=== PATIENT | female | born 1990 | race Caucasian/White ===

== ENCOUNTER 2020-05-26 10:03 | Inpatient (IN) ==
[2020-05-26] MEDS ORDERED: OXYTOCIN 30 UNITS/500 ML BAG IV PRN ×3 (11:01→22:31)
--- NOTE | 2020-05-26 11:11 | History & Physical Report ---
Date of Service May 26, 2020 Assessment & Plan (1) : 29 y/o G1 at 40 wga presenting with PROM VSS Fetus cat 1 Labor - discussed expectant mgt for few hrs vs augmentation, risks vs benefits of both. Pt would like to begin augmentation, will start pit GBS neg Epidural PRN History of Present Illness Chief Complaint: LOF Primary Care Provider: NO PCP 29 y/o G1 at 40 wga w/ TAD 05/26/20 by LMP 08/20/19 c/w 1st tri US presents w/ LOF since ~730 this morning. Unsure if ctx assoc, some blood tinged mucous but no overt bleeding. +FM. PNI: None Past [employer] hx: G1 Menarche 12, cycles regular Last pap 2017 wnl, no hx abnormals No hx STIs Allergies Allergy/AdvReac Type Severity Reaction Status Date / Time No Known Allergies Allergy Verified 05/23/20 16:14 Home Medications Medication Instructions Recorded Confirmed Type prenat.vits,charity,lqu-huep-bexsy 1 tab PO DAILY 10/18/19 05/26/20 History ferrous fumarate 325 mg (106 mg 325 mg PO DAILY 11/22/19 05/26/20 History iron) tablet Patient History Medical History Acquired deviated nasal septum Chronic sinusitis History of chicken pox Hypertrophy of nasal turbinates Surgical History No pertinent past surgical history S/P wisdom tooth extraction Family History Grandfather (Maternal) Colorectal cancer Grandfather (Paternal) Myocardial infarction Diabetes Grandmother (Paternal) Diabetes Social History (Updated 05/26/20 @ 11:06 by Kenia Sheridan MD) Smoking Status: Never smoker Second Hand Exposure: No; Hx Alcohol Use: Yes Alcohol Intake Frequency Comment: Occassional - not in Hx Substance Use: No Preferred Language: Luxembourgish Communication Ability: Effective Cardio Tech Required: No Beliefs That Will Affect Care: None marital status: marital status details: Yao Hookerdashawn (28) [phone] Current Living Situation: Spouse Current Living Situation Comment: lives with spouse, cats-spouse changing litter current occupational status: employed 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 Other Information That Helps Us Care for You: No Feels Safe at Home: Yes Safety Concerns: Feels Safe At This Time Assistive Devices: None Physical Exam Constitutional: WD/WN, vitals as above no acute distress Respiratory: normal respiratory effort; no respiratory distress and no labored breathing Genitourinary: OB Exam Abdomen: + vertex (confirmed by BSUS) and + estimated weight (7-8lbs) Manual OB Exam: + cervical dilation 2 cm, + cervical effacement 70%, + station high and + amniotic fluid (+pooling, nitrazine, ferning) OB Exam Monitor Tracing: + external FHT monitor used, + external uterine monitor used (rare and irreg ctx) and + category I (135/mod/+accel/-d ecel) Results & Data ([facility]) Vital Signs (Past 12 Hours) Vital Signs Pulse BP 05/26/20 10:20 116 H 121/87 Laboratory Results OB Labs: Blood Type B Positive 10/25/19 Antibody Screen NEGATIVE 10/25/19 Hemoglobin 11.5 g/dL (12.0-16.0) L 10/25/19 Hematocrit 34.6 % (37-47) L 10/25/19 Mean Corpuscular Volume 85.6 fL (80-100) 10/25/19 Platelet Count 288 K/uL (130-400) 10/25/19 Rubella IgG Antibody Immune (Immune) 10/25/19 Rapid Plasma Reagin Nonreactive (Nonreactive) 10/25/19 Hepatitis B Surface Antigen Neg (Neg) 10/25/19 HIV (1&2) Ab and P24 Ag, 4th Gener Neg (Neg) 10/25/19 OB Optional Labs: Chlamydia trachomatis RNA NOT DETECTED (NOT DETECTED) 10/25/19 Neisseria gonorrhoeae RNA NOT DETECTED (NOT DETECTED) 10/25/1912/26: 69/89/86 03/08: 74/157/140 low risk cfDNA low risk cf/sma GBS neg COVID neg 05/14 posterior plac Code Status & VTE Plan VTE Prophylaxis Plan VTE Prophylaxis will be ordered: Yes Coding Level of Care Code None Diagnoses Z34.90
[2020-05-26] MEDS: LACTATED RINGER'S 1,000 ML IV PRN ×2 (11:35→15:45)
[2020-05-26 12:12] LABS: Hematocrit (blood only) 36.6 % (37-47); Mean Corpuscular Hgb Conc 32.8 g/dL (32-36); Mean Corpuscular Volume 85.5 fL (80-100); Mean Platelet Volume 12.4 fL (7.4-10.4); Platelet Count 241 K/uL (130-400); RDW Coefficient of Variation 13.1 % (11.5-14.5); RDW Standard Deviation 40.2 fL (36.4-46.3); Red Blood Count 4.28 M/uL (4.2-5.4); White Blood Count 16.29 K/uL (4.8-10.8)
[2020-05-26] MEDS ORDERED: ePHEDrine sulfate 50 MG/ML AMP ONE (14:32)
[2020-05-26] MEDS ORDERED: SODIUM CHLORIDE 0.9% INJ 10 ML VIAL ONE (14:33)
[2020-05-26] MEDS ORDERED: fentaNYL citrate 100 MCG/2 ML VIAL ONE (14:33)
[2020-05-26] MEDS ORDERED: BUPIVACAINE 0.25% 30 ML VIAL ONE (14:33)
[2020-05-26] MEDS ORDERED: fentaNYL 2MCG/ML ROPIVACAINE 1.25MG/ML 100 ML BAG EPI ONE (14:33)
--- NOTE | 2020-05-26 14:35 | Labor Progress Brief Note ---
Date of Service May 26, 2020 Subjective Much more uncomfortable w/ ctx, requesting epidural Assessment & Plan (1) : 29 y/o G1 at 40 wga presenting with PROM VSS Fetus cat 1 Labor - pit at 8, continue augmentation GBS neg Epidural PRN - desires epidural Admission and Anticipated Discharge Date Admission Date: May 26, 2020 Physical Exam Constitutional: WD/WN, vitals as above no acute distress Respiratory: normal respiratory effort; no respiratory distress and no labored breathing Genitourinary: Manual OB Exam: + cervical dilation 3 cm, + cervical effacement 70% and + station high OB Exam Monitor Tracing: + external FHT monitor used, + external uterine monitor used (q2-5min) and + category I (125/mod/+accel/- decel) Results & Data ([facility]) Vital Signs (Past 12 Hours) Vital Signs Temp Pulse Resp BP 05/26/20 13:45 90 120/78 05/26/20 13:30 98.4 F 05/26/20 12:45 89 110/71 05/26/20 11:46 101 H 103/66 05/26/20 10:54 116 H 18 121/87 05/26/20 10:20 116 H 121/87 Coding Level of Care Code None Diagnoses Z34.90
--- NOTE | 2020-05-26 15:02 | Anesthesiology Consultation ---
Date of Service May 26, 2020 Assessment & Plan (1) Encounter for pre-operative examination: Chart Review Chart Review: Acceptable Risk for Surgery History Height/Weight Height: 5 ft 4 in Weight: 92.079 kg Allergies Allergy/AdvReac Type Severity Reaction Status Date / Time No Known Allergies Allergy Verified 05/23/20 16:14 Medications Home Medications Medication Instructions Recorded Confirmed Last Taken prenat.vits,charity,hli-giur-cjked 1 tab PO DAILY 10/18/19 05/26/20 05/26/20 09:00 ferrous fumarate 325 mg (106 mg 325 mg PO DAILY 11/22/19 05/26/20 05/25/20 18:00 iron) tablet Active Medications Generic Name Dose Route Start Last Admin Trade Name Freq PRN Reason Stop Dose Admin Oxytocin 30 units in 500 mls @ 8 mls/hr 05/26/20 11:01 05/26/20 14:15 Pitocin IV 05/28/20 11:00 0.48 units/hr .Q24H PRN 8 mls/hr Labor Induction/Augmentation Titration Protocol 0.48 UNITS/HR Lactated Ringer's 1,000 mls @ 125 mls/hr 05/26/20 11:01 05/26/20 14:30 Lr IV 05/28/20 11:00 999 mls/hr .Q8H PRN Infusion L&D Protocol Protocol Past Medical History Medical History Acquired deviated nasal septum Chronic sinusitis History of chicken pox Hypertrophy of nasal turbinates Past Family History Family History Grandfather (Maternal) Colorectal cancer Grandfather (Paternal) Myocardial infarction Diabetes Grandmother (Paternal) Diabetes Past Surgical History Surgical History No pertinent past surgical history S/P wisdom tooth extraction Social History Smoking Status: Never smoker Hx Alcohol Use: Yes Hx Substance Use: No Physical Exam Vital Signs Last Vital Signs Temp 36.9 C 05/26/20 13:30 Pulse 86 05/26/20 14:45 Resp 18 05/26/20 10:54 BP 117/71 05/26/20 14:45 Testing Laboratory Results 05/26/20 11:10 Laboratory Tests 05/14/20 05/26/20 13:54 11:10 Hgb 12.0 SARS-CoV-2 RNA (RT-PCR) NEGATIVE platelets 241
[2020-05-26] MEDS ORDERED: ONDANSETRON INJ 2 MG/ML 2 ML VIAL IV PRN (15:32)
[2020-05-26] MEDS ORDERED: NALOXONE HCL 1 MG in SODIUM CHLORIDE 0.9% 1000ML 1,000 ML IV PRN (15:32)
[2020-05-26] MEDS ORDERED: fentaNYL 2MCG/ML ROPIVACAINE 1.25MG/ML 100 ML BAG EPI PRN (15:32)
[2020-05-26] MEDS ORDERED: ePHEDrine sulfate 50 MG/ML AMP IV PRN (15:32)
[2020-05-26] MEDS ORDERED: NALOXONE HCL 0.4 MG/1 ML VIAL/CARP IV PRN (15:32)
[2020-05-26] MEDS ORDERED: Nursing to Pharmacy Communication SCH (19:15)
--- NOTE | 2020-05-26 20:47 | Delivery Summary ---
Vaginal Delivery Summary Date of Service May 26, 2020 Vaginal Delivery Summary PREOPERATIVE DIAGNOSIS: 1. Single intrauterine at 40 weeks gestation 2. Spontaneous rupture of membranes POSTOPERATIVE DIAGNOSIS: 1. Single intrauterine at 40 weeks gestation 2. Spontaneous rupture of membranes 3. Delivered PROCEDURE: 1. Normal spontaneous vaginal delivery. SURGEON: Kenia Sheridan MD ANESTHESIA: Epidural. ESTIMATED BLOOD LOSS: 300 mL FLUIDS: Continuous LR. URINE OUTPUT: None. COMPLICATIONS: None. CONDITION: Stable. INDICATIONS: 29 y/o G1 at 40 wga presented today with SROM, no contractions at that time. Induction was begun with oxytocin, which was titrated per protocol. She received an epidural for pain control. She then progressed to complete, complete, and +2 station and desired to push. FINDINGS: A viable male infant with Apgars of 9 and 10 at 1 and 5 minutes respectively. SPECIMEN: None. OPERATIVE REPORT: The patient progressed to 10 cm, 100% effaced and +2 station, pushed over intact perineum with anesthesia to deliver a viable male , weight and Apgars as above. Head of delivered in VICKY position. Nuchal cord x 2 was present and easily delivered through. Body and shoulders were delivered without difficulty. was delivered to maternal abdomen and nursing staff. Delayed cord clamping was performed for 60 seconds. Cord was clamped and cut. Cord blood was obtained. Placenta delivered spontaneously intact with 3-vessel cord. IV oxytocin and fundal massage were given for excellent hemostasis. Vagina, cervix, perineum, and placenta were inspected. Second degree laceration was noted and repaired in the usual fashion. Sponge and needle counts correct x2. No sponges were left behind. Mother and stable in immediate period[place] [facility] [place] [facility] [place] Charge Vaginal Delivery Codes: 25756 global code for the antepartum, delivery, and post-
[2020-05-26] MEDS ORDERED: ACETAMINOPHEN 325 MG TAB PO PRN (22:31)
[2020-05-26] MEDS ORDERED: IBUPROFEN 600 MG TAB PO PRN (22:31)
[2020-05-26] MEDS ORDERED: DIPHTHERIA/TETANUS/PERTUSSIS 0.5 ML SYR/VIAL IM ONE (22:31)
[2020-05-26] MEDS ORDERED: BENZOCAINE 20% AER SPR 82.5 GM CAN EXT PRN (22:31)
[2020-05-26] MEDS ORDERED: HYDROCORTISONE ACETATE 25 MG SUPP PR PRN (22:31)
[2020-05-26] MEDS ORDERED: SUPERCREAM 0.870% 15 GM JAR EXT PRN (22:31)
[2020-05-26] MEDS ORDERED: bisacodyL 10 MG SUPP PR PRN (22:31)
[2020-05-26] MEDS: DOCUSATE SODIUM 100 MG CAP PO SCH (22:52)
--- NOTE | 2020-05-27 05:58 | Obstetrical Progress Note ---
Date of Service <Ray Crandall MD - Last Filed: 05/27/20 07:44> May 27, 2020 Assessment & Plan <Ray Crandall MD - Last Filed: 05/27/20 07:44> (1) state: Subjective <Ray Crandall MD - Last Filed: 05/27/20 07:44> Ambulation: ambulating normally Voiding: no voiding problems Diet Tolerance:: regular diet Feeding Type:: breast feeding Doing well. Mild lower abd cramping/pressure, rates 1-2/10. Ambulating and voiding. Last BM yesterday AM. Small-moderate lochia. . Review of Systems Denies fever, chills, sweats Denies shortness of breath, chest pain, palpitations. Denies breast pain. Denies dysuria. Denies headache or changes in vision. Denies nausea/vomiting. Denies numbness, tingling, weakness. Physical Exam <Ray Crandall MD - Last Filed: 05/27/20 07:44> General: Alert, oriented. No acute distress. Cardiac: Regular rate and rhythm, no murmurs/rubs/gallops. Respiratory: Clear to auscultation bilaterally, no wheezes/rales/rhonchi. No respiratory distress. Abdomen: , soft, nontender. Uterus: Uterine fundus firm, palpable 1 cm below umbilicus. Lower Extremities: 2+ bilateral lower extremity edema. No deep calf pain. Erica's negative bilaterally. Results & Data ([facility]) <Ray Crandall MD - Last Filed: 05/27/20 07:44> Vital Signs (Past 12 Hours) Vital Signs Temp Pulse Pulse Resp BP BP Pulse Ox 05/26/20 23:25 37.1 C 82 18 117/60 05/26/20 22:54 102 H 117/60 05/26/20 22:39 100 H 118/75 05/26/20 22:24 96 H 119/75 05/26/20 22:09 97 H 117/80 05/26/20 21:54 91 H 117/75 05/26/20 21:40 18 05/26/20 21:39 94 H 117/68 05/26/20 21:25 92 H 116/67 05/26/20 21:09 104 H 116/62 05/26/20 20:54 99 H 125/68 12/13/20 20:40 37.2 C 18 12/13/20 20:39 90 126/74 12/13/20 20:35 95 H 96 12/13/20 20:30 103 H 96 12/13/20 20:26 107 H 117/64 12/13/20 20:25 108 H 95 12/13/20 20:20 114 H 96 12/13/20 20:19 128 H 94 12/13/20 20:15 122 H 95 12/13/20 20:14 144 H 93 12/13/20 20:10 128 H 93 12/13/20 20:08 116 H 93 12/13/20 20:05 130 H 90 12/13/20 20:02 127 H 92 12/13/20 20:00 135 H 81 L 12/13/20 19:57 119 H 83 L 12/13/20 19:55 119 H 61 L 12/13/20 19:50 102 H 97 12/13/20 19:46 119 H 92 12/13/20 19:45 100 H 97 12/13/20 19:40 109 H 93 12/13/20 19:35 98 H 96 12/13/20 19:30 88 97 12/13/20 19:27 96 H 130/63 12/13/20 19:25 99 H 96 12/13/20 19:20 92 H 97 12/13/20 19:15 89 97 12/13/20 19:11 93 H 139/87 12/13/20 19:10 90 96 12/13/20 19:05 86 97 12/13/20 19:04 90 94 12/13/20 19:00 88 97 12/13/20 18:57 89 135/78 12/13/20 18:55 91 H 97 12/13/20 18:51 82 93 12/13/20 18:50 90 97 12/13/20 18:45 88 96 12/13/20 18:41 85 134/86 12/13/20 18:40 99 H 97 12/13/20 18:35 101 H 97 12/13/20 18:30 98 H 96 12/13/20 18:26 88 121/83 12/13/20 18:25 93 H 96 12/13/20 18:20 92 H 97 12/13/20 18:15 93 H 97 12/13/20 18:11 100 H 134/87 05/26/20 18:10 101 H 95 05/26/20 18:05 101 H 97 05/26/20 18:00 95 H 96 Medications Administered <Kenia Sheridan MD - Last Filed: 05/27/20 08:00> Co-Signing Physician Notes Resident Physician Supervision Note: I interviewed and examined the patient. Discussed with Dr. Crandall and agree with findings and plan as documented in the note. Any exceptions or clarifications are listed here: Pt doing well, meeting pp milestones day 1. Continue routine care Documented By: Kenia Sheridan MD Resident Activity Tracking <Ray Crandall MD - Last Filed: 05/27/20 07:44> Resident Involvement: Resident Care Provided Care Provided: OB Delivery
[2020-05-27] MEDS: PRENATAL VITAMIN 1 TAB PO SCH (07:38)
[2020-05-27] MEDS: DOCUSATE SODIUM 100 MG CAP PO SCH ×2 (07:38→20:31)
[2020-05-27] MEDS: FERROUS SULFATE 325 MG TAB PO SCH (07:38)
--- NOTE | 2020-05-27 08:29 | Anesthesia Procedure Note ---
Date of Service May 27, 2020 Anesthesia Post Epidural Note Vital Signs Vital Signs: Temp Pulse Resp BP Pulse Ox 37 C 96 H 18 112/73 96 05/27/20 05:05 05/27/20 05:05 05/27/20 05:05 05/27/20 05:05 05/26/20 20:35 Pain Intensity Lower Abdomen: Pain Intensity: 8 Notes Mental Status: alert / awake / arousable Nausea / Vomiting: adequately controlled Pain: adequately controlled Airway Patency, RR, SpO2: stable & adequate BP & HR: stable & adequate Hydration State: stable & adequate Neuraxial Anesthesia: was administered and sensory block is resolving Anesthetic Complications: no major complications apparent Epidural: Removed without complications and With tip intact
[2020-05-27] MEDS ORDERED: bisacodyL 5 MG TABEC PO SCH (20:00)
--- NOTE | 2020-05-28 05:57 | Obstetrical Progress Note ---
Date of Service <Ray Crandall MD - Last Filed: 05/28/20 07:15> May 28, 2020 Assessment & Plan <Ray Crandall MD - Last Filed: 05/28/20 07:15> (1) state: 29 y/o G1 s/p , PPD2. Stable. B+. Rubella immune. - meeting PP milestones. ambulating and voiding. Last BM yesterday. - borderline tachycardia - without issues - continue routine care - anticipate d/c today Subjective <Ray Crandall MD - Last Filed: 05/28/20 07:15> Ambulation: ambulating normally Voiding: no voiding problems Passing Gas:: No Diet Tolerance:: regular diet Feeding Type:: breast feeding Current Pain Level(1-10): 0 Doing well. No new complaints today. without issues. Ambulating, voiding, eating without difficulty. No flatus, but had BM yesterday. No pain. Review of Systems Denies fever, chills, sweats Denies shortness of breath, chest pain. Denies dysuria. Denies headache or changes in vision. Denies nausea/vomiting. Denies numbness, tingling, weakness. Physical Exam <Ray Crandall MD - Last Filed: 05/28/20 07:15> General: Alert, oriented. No acute distress. Cardiac: Regular rate and rhythm, no murmurs/rubs/gallops. Respiratory: Clear to auscultation bilaterally, no wheezes/rales/rhonchi. No respiratory distress. Abdomen: , soft, nontender. Uterus: Uterine fundus firm, palpable 1 cm below umbilicus. Lower Extremities: No lower extremity pitting edema. No deep calf pain. Erica's negative bilaterally. Results & Data ([facility]) <Ray Crandall MD - Last Filed: 05/28/20 07:15> Vital Signs (Past 12 Hours) Vital Signs Temp Pulse Resp BP 05/27/20 23:50 36.9 C 94 H 16 114/86 05/27/20 20:45 37.4 C 108 H 18 109/72 Medications Administered <Kimber Brown DO - Last Filed: 05/28/20 08:07> Co-Signing Physician Notes Resident Physician Supervision Note: I was present with Dr. Crandall during the history and exam. I discussed the case with the resident and agree with the findings and plan as documented in the note. Any exceptions or clarifications are listed here: PPD#2 doing well. DC home to[facility]un [facility]. Instructions reviewed . Documented By: Kimber Brown, DO
[2020-05-28] MEDS: FERROUS SULFATE 325 MG TAB PO SCH (08:18)
[2020-05-28] MEDS: PRENATAL VITAMIN 1 TAB PO SCH (08:18)
[2020-05-28] MEDS: DOCUSATE SODIUM 100 MG CAP PO SCH (08:18)
== END 2020-05-28 13:00 | disposition home or self-care (01) | DRG 807 ==
LOC: OPB 10:03 → 4S1 10:04 → 4S2 23:05

== ENCOUNTER 2022-10-05 07:40 | Inpatient (IN) ==
[2022-10-05] MEDS ORDERED: OXYTOCIN 30 UNITS/500 ML BAG IV PRN ×3 (07:45→15:57)
[2022-10-05] MEDS ORDERED: LIDOCAINE 1% LOCAL 20 ML VIAL INFIL PRN (07:45)
[2022-10-05] MEDS: LACTATED RINGER'S 1,000 ML IV PRN ×2 (08:12→12:36)
[2022-10-05 08:28] LABS: Hematocrit (blood only) 33.3 % (37.0-47.0); Hemoglobin 11.2 g/dl (12.0-16.0); Mean Corpuscular Hemoglobin 27.7 pg (25.0-34.0); Mean Corpuscular Hgb Conc 33.6 g/dL (32.0-36.0); Mean Corpuscular Volume 82.4 fL (80.0-100.0); Mean Platelet Volume 12.7 fL (9.4-12.4); Platelet Count 179 K/uL (130-400); RDW Coefficient of Variation 14.5 % (11.5-14.5); RDW Standard Deviation 42.9 fL (36.4-46.3); Red Blood Count 4.04 M/uL (4.20-5.40); White Blood Count 9.25 K/ul (4.8-10.8)
--- NOTE | 2022-10-05 10:57 | History & Physical Report ---
Date of Service October 05, 2022 Assessment & Plan Admission and Anticipated Discharge Date Admission Date: October 05, 2022 History of Present Illness Primary Care Provider: Kathie Sellers MD Patient is a 31 yo female EDC 10/09/22 who presents for continuation of IOL at 39 3/7 weeks because of suspected macrosomia on ultrasound. AC is measuring 98%tile at 36 weeks. ultrasound done at 32 weeks because of maternal obesity shows AC of 93%tile. first baby weighed 7 lbs 12 ozs. GBS - negative Allergies Allergy/AdvReac Type Severity Reaction Status Date / Time No Known Allergies Allergy Verified 10/05/22 10:34 Home Medications Medication Instructions Recorded Confirmed Type prenat.vits,charity,lfc-vbmw-gkvzq 1 tab PO DAILY 10/18/19 10/05/22 History ferrous sulfate 325 mg (65 mg 325 mg PO DAILY 05/06/22 10/05/22 History iron) tablet Patient History Medical History Acquired deviated nasal septum Acquired deviated nasal septum Chronic sinusitis Encounter for initial prescription of contraceptives Encounter for pre-operative examination Encounter for routine gynecological examination Encounter for screening laboratory testing for COVID-19 virus History of chicken pox Hypertrophy of nasal turbinates Hypertrophy of nasal turbinates Supervision of normal first Surgical History No pertinent past surgical history S/P wisdom tooth extraction Family History Grandfather (Maternal) Colorectal cancer Grandfather (Paternal) Myocardial infarction Diabetes Grandmother (Paternal) Diabetes Mother S/P cholecystectomy Father Hypertension Brother No problems noted. Sister No problems noted. Son No problems noted. 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 How many Children do You have: 1 Childhood Exposure to Second-Hand Smoke: No Diet Comment: PES caffeine: Yes during the past year weight has: remained stable Dental Care, Regularly: Yes Physical Activity Frequency: Daily Seatbelt Use: always Sunscreen Use: Yes Assistive Devices: None Review of Systems All systems reviewed & are unremarkable except as noted in HPI & below Physical Exam Constitutional: WD/WN, vitals as above Psychiatric: A+Ox3, euthymic affect Genitourinary: OB Exam Abdomen: + vertex, + estimated weight (8-9 pounds) and + irregular contractions Manual OB Exam: + cervical dilation (3-4 cm), + cervical effacement 70% and + station -2 OB Exam Monitor Tracing: + external FHT monitor used, + external uterine monitor used, + category I and + normal FHT variability Results & Data Vital Signs (Past 12 Hours) Vital Signs Temp Pulse Resp BP 10/05/22 08:24 97.7 F 20 10/05/22 10:17 18 10/05/22 10:17 18 10/05/22 09:30 18 10/05/22 09:30 18 10/05/22 10:18 93 H 118/81 10/05/22 09:27 88 120/85 10/05/22 07:53 108 H 130/85 Code Status & VTE Plan VTE Prophylaxis Plan VTE Prophylaxis will be ordered: No Coding Level of Care Code None Diagnoses
[2022-10-05] MEDS ORDERED: ePHEDrine sulfate 50 MG/ML AMP ONE (12:54)
[2022-10-05] MEDS ORDERED: SODIUM CHLORIDE 0.9% PF INJ 10 ML VIAL ONE (12:55)
[2022-10-05] MEDS ORDERED: LIDOCAINE 2%/EPINEPHRINE 1:200,000 20 ML PF ONE (12:55)
[2022-10-05] MEDS ORDERED: fentaNYL 2MCG/ML ROPIVACAINE 1.25MG/ML 100 ML BAG EPI ONE (12:55)
[2022-10-05] MEDS ORDERED: fentaNYL citrate PF 100 MCG/2 ML VIAL ONE (12:55)
[2022-10-05] MEDS ORDERED: BUPIVACAINE 0.25% PF 30 ML VIAL ONE (12:55)
[2022-10-05] MEDS ORDERED: ONDANSETRON INJ 2 MG/ML 2 ML VIAL IV PRN (13:00)
[2022-10-05] MEDS ORDERED: NALOXONE HCL 1 MG in SODIUM CHLORIDE 0.9% 1000ML 1,000 ML IV PRN (13:00)
[2022-10-05] MEDS ORDERED: NALBUPHINE HCL INJ 10 MG/ML AMP IV PRN (13:00)
[2022-10-05] MEDS ORDERED: ePHEDrine sulfate 50 MG/ML AMP IV PRN (13:00)
[2022-10-05] MEDS ORDERED: METOCLOPRAMIDE HCL 20 MG in SODIUM CHLORIDE 0.9% 50 ML IV PRN (13:00)
[2022-10-05] MEDS ORDERED: NALOXONE HCL 0.4 MG/1 ML VIAL/CARP IV PRN (13:00)
[2022-10-05] MEDS ORDERED: diphenhydrAMINE 50 MG/ML VIAL IV PRN (13:00)
[2022-10-05] MEDS ORDERED: fentaNYL 2MCG/ML ROPIVACAINE 1.25MG/ML 100 ML BAG EPI PRN (13:00)
--- NOTE | 2022-10-05 13:02 | Anesthesiology Consultation ---
Date of Service October 05, 2022 Assessment & Plan Chart Review Chart Review: Acceptable Risk for Labor Epidural Consults Requested none ASA ASA2 Proposed Anesthesia Anesthesia Type: Labor Epidural Risk / Benefits Reviewed With: PT / POA / Parent / Guardian, Accepts Plan and Informed Consent Obtained History Height/Weight Height: 5 ft 4 in Weight: 106.226 kg Allergies Allergy/AdvReac Type Severity Reaction Status Date / Time No Known Allergies Allergy Verified 10/05/22 10:34 Medications Home Medications Medication Instructions Recorded Confirmed Last Taken prenat.vits,charity,vbg-xgfb-ejysm 1 tab PO DAILY 10/18/19 10/05/22 10/04/22 ferrous sulfate 325 mg (65 mg 325 mg PO DAILY 05/06/22 10/05/22 10/04/22 iron) tablet Active Medications Generic Name Dose Route Start Last Admin Trade Name Freq PRN Reason Stop Dose Admin Lactated Ringer's 1,000 mls @ 125 mls/hr 10/05/22 07:45 10/05/22 12:36 Lr IV 10/07/22 07:44 999 mls/hr .Q8H PRN Administration L&D Protocol Protocol Oxytocin 30 units in 500 mls @ 13 mls/hr 10/05/22 07:48 10/05/22 11:43 Pitocin IV 10/07/22 07:47 0.78 units/hr .Q24H PRN 13 mls/hr Labor Induction/Augmentation Titration Protocol 0.78 UNITS/HR NPO Date Last Intake of Fluids: 10/05/22 Time Last Intake of Fluids: 12:00 Date Last Intake of Solids: 10/05/22 Time Last Intake of Solids: 07:00 Past Medical History Medical History Acquired deviated nasal septum Acquired deviated nasal septum Chronic sinusitis Encounter for initial prescription of contraceptives Encounter for pre-operative examination Encounter for routine gynecological examination Encounter for screening laboratory testing for COVID-19 virus History of chicken pox Hypertrophy of nasal turbinates Hypertrophy of nasal turbinates Supervision of normal first Exercise / Class Metabolic Activity II 4-5 Yardwork/Stairs/Walk up hill Past Family History Family History Grandfather (Maternal) Colorectal cancer Grandfather (Paternal) Myocardial infarction Diabetes Grandmother (Paternal) Diabetes Mother S/P cholecystectomy Father Hypertension Brother No problems noted. Sister No problems noted. Son No problems noted. Past Surgical History Surgical History No pertinent past surgical history S/P wisdom tooth extraction Past Anesthesia History No Hx of Anesthesia Complications and No Family Hx of Anesthesia Complications History of PONV No Hx of PONV and No Hx of Motion Sickness Social History Smoking Status: Never smoker Hx Alcohol Use: No Alcohol type: wine and hard liquor Hx Substance Use: No substance use type: does not use Physical Exam Vital Signs Last Vital Signs Temp 36.9 C 10/05/22 11:40 Pulse 92 H 10/05/22 13:30 Resp 18 10/05/22 13:05 BP 136/83 10/05/22 13:29 Pulse Ox 96 10/05/22 13:30 ENMT Mouth: no TMJ abnormality Thyromental Distance: > or= 3.5 Finger Breadths Mallampati Class: III Neck normal visual inspection and trachea midline; neck extension not limited Respiratory normal respiratory effort Auscultation: lungs clear to auscultation bilaterally Cardiovascular Rate/Rhythm: regular rate and regular rhythm Heart Sounds: no murmur Musculoskeletal Spine: normal cervical ROM Extremities: full ROM of extremities Neurologic moves all extremities Psychiatric Orientation: alert and oriented x 3 Testing Laboratory Results 10/05/22 08:09 Blood Type B Positive 10/05/22 08:09 Antibody Screen NEGATIVE 10/05/22 08:09
[2022-10-05] MEDS ORDERED: HYDROCORTISONE ACETATE 25 MG SUPP PR PRN (15:57)
[2022-10-05] MEDS ORDERED: bisacodyL 10 MG SUPP PR PRN (15:57)
[2022-10-05] MEDS ORDERED: BENZOCAINE 20% AER SPR 82.5 GM CAN EXT PRN (15:57)
[2022-10-05] MEDS ORDERED: ACETAMINOPHEN 325 MG TAB PO PRN (15:57)
[2022-10-05] MEDS ORDERED: DIPHTHERIA/TETANUS/PERTUSSIS 0.5mL SYR/VIAL (Age 7+yrs) IM ONE (15:57)
--- NOTE | 2022-10-05 16:41 | Delivery Summary ---
Vaginal Delivery Summary Date of Service October 05, 2022 Vaginal Delivery Summary and 1st Degree LAC Patient is a 31-year-old 2 para 1-0-0-1 female who presents at 39-3/7 weeks for induction of labor because of suspected macrosomia. Patient received a cervical balloon which fell out spontaneously. Pitocin augmentation was begun and membranes were ruptured for a copious amount of clear fluid. She received effective epidural analgesia and progressed to full dilation. She pushed effectively through 1 contraction for delivery of a viable male infant. There was a loose nuchal cord which was reduced prior to delivering the rest of the infant. The shoulders followed by the rest of the delivered without maternal effort and with ease. The infant was vigorous and moving all 4 limbs. After 1 minute the cord was clamped and cut. Cord blood was obtained following the manufacturers directions. The placenta was then expressed intact with a three-vessel cord. bleeding was controlled with dilute Pitocin and fundal massage. A first-degree perineal laceration was repaired with 3-0 chromic in usual fashion. Estimated blood loss was 200 cc. Mother and infant were doing well in the immediate time period. [facility] [place] Vaginal Delivery Charge Delivery Type Details: and 1st Degree LAC
--- NOTE | 2022-10-05 16:51 | Anesthesia Procedure Note ---
Date of Service October 05, 2022 Anesthesia Post Epidural Note Vital Signs Vital Signs: Temp Pulse Resp BP Pulse Ox 36.8 C 90 16 127/58 L 98 10/05/22 15:13 10/05/22 16:49 10/05/22 15:13 10/05/22 16:49 10/05/22 15:50 Pain Intensity Abdomen: Pain Intensity: 0 Notes Mental Status: alert / awake / arousable and participated in evaluation Nausea / Vomiting: adequately controlled Pain: adequately controlled Airway Patency, RR, SpO2: stable & adequate BP & HR: stable & adequate Hydration State: stable & adequate Neuraxial Anesthesia: was administered and sensory block is resolving Anesthetic Complications: no major complications apparent and Pt Satisfied with anesthetic care Epidural: Removed without complications and With tip intact
[2022-10-05] MEDS: DOCUSATE SODIUM 100 MG CAP PO SCH (20:07)
[2022-10-06] MEDS: IBUPROFEN 600 MG TAB PO PRN ×2 (03:01→08:11)
--- NOTE | 2022-10-06 06:39 | Obstetrical Progress Note ---
Date of Service <Yomi Chase DO - Last Filed: 10/06/22 07:22> October 06, 2022 Assessment & Plan <Yomi Chase DO - Last Filed: 10/06/22 07:22> (1) Normal vaginal delivery: - Feels well today. Eating well, voiding well, ambulating well. - Pain well controlled with ibuprofen 600mg Q4H PRN - Routine care -- OOB, ambulation, diet progression as tolerated - After discharge will have 6 week follow-up with Dr. Phillip Day #:: 1 <Elaine Vargas MD, FACOG - Last Filed: 10/06/22 07:48> (1) Normal vaginal delivery: Subjective <Yomi Chase DO - Last Filed: 10/06/22 07:22> Ambulation: ambulating normally Voiding: no voiding problems Passing Gas:: No (has not tried to yet ) Diet Tolerance:: regular diet Lochia:: Small Feeding Type:: breast feeding Current Pain Level(1-10): 2 Review of Systems Denies fever, chills, sweats Denies shortness of breath, difficulty breathing, chest pain, palpitations, chest pressure. Denies breast pain. Denies dysuria. Denies headache or changes in vision. Physical Exam <Yomi Chase DO - Last Filed: 10/06/22 07:22> General: Alert, oriented. No acute distress. Cardiac: Regular rate and rhythm, no murmurs/rubs/gallops. Respiratory: Clear to auscultation bilaterally a/p, no wheezes/rales/rhonchi. No increased work of breathing. Symmetrical chest rise. No respiratory distress. Abdomen: Soft, nontender, nondistended. Bowel sounds present. Uterus: Uterine fundus firm, palpable 2 cm below umbilicus. Lower Extremities: No lower extremity edema or swelling. No deep calf pain. Erica's negative bilaterally. Results & Data <Yomi Chase DO - Last Filed: 10/06/22 07:22> Vital Signs (Past 12 Hours) Vital Signs Temp Pulse Resp BP O2 Del Method 10/06/22 02:53 36.5 C 98 H 16 106/72 Room Air 10/05/22 22:57 36.6 C 90 16 117/80 Room Air 10/05/22 19:34 36.7 C 90 16 122/83 Room Air <Elaine Vargas MD, FACOG - Last Filed: 10/06/22 07:48> Co-Signing Physician Notes Resident Physician Supervision Note: I interviewed and examined the patient. Discussed with Dr. Chase and agree with findings and plan as documented in the note. Any exceptions or clarifications are listed here: [None] Documented By: Elaine Vargas MD, FACOG Resident Activity Tracking <Yomi Chase DO - Last Filed: 10/06/22 07:22> Resident Involvement: Resident Care Provided Care Provided: OB Delivery
[2022-10-06 06:54] LABS: Hematocrit (blood only) 32.2 % (37.0-47.0); Hemoglobin 10.7 g/dl (12.0-16.0); Mean Corpuscular Hemoglobin 27.2 pg (25.0-34.0); Mean Corpuscular Hgb Conc 33.2 g/dL (32.0-36.0); Mean Corpuscular Volume 81.7 fL (80.0-100.0); Mean Platelet Volume 12.5 fL (9.4-12.4); Platelet Count 172 K/uL (130-400); RDW Coefficient of Variation 14.6 % (11.5-14.5); RDW Standard Deviation 42.5 fL (36.4-46.3); Red Blood Count 3.94 M/uL (4.20-5.40); White Blood Count 10.62 K/ul (4.8-10.8)
[2022-10-06] MEDS ORDERED: PRENATAL VITAMIN 1 TAB PO SCH (08:00)
[2022-10-06] MEDS: DOCUSATE SODIUM 100 MG CAP PO SCH (08:11)
[2022-10-06] MEDS ORDERED: bisacodyL 5 MG TABEC PO SCH (20:00)
== END 2022-10-06 18:05 | disposition home or self-care (01) | DRG 807 ==
LOC: 4S1 07:40 → 4E2 18:52